=== PATIENT | male | born 1970 | race Caucasian/White ===

== ENCOUNTER 2017-08-18 15:19 | Emergency (ER) | payer MEDICAID, SELFPAY ==
[2017-08-18 15:20] VITALS: BP 125/67; PULSE 85; RESP 16; TEMP 36.9; O2SAT 99
--- NOTE | 2017-08-18 15:44 | ED.DCSUM_ITS ---
- ER Visit Summary Date of Service: 08/18/17 Chief Complaint: Back pain History of Present Illness: The patient is a 47 M with no primary care physician. He reports that yesterday while helping a friend move a refrigerator he was pulling and lifting when he slipped and twisted awkwardly. He has had left-sided back pain since that time. He did not fall. He describes the pain as sharp. Is 10 out of 10 with movement or standing up straight. Is 8 out of 10 at rest. Is taken ibuprofen without relief. No radiation to his legs. No numbness or weakness in his legs. No problems with his bowels or his bladder. No groin numbness. Physical Examination: Vitals: Stable. Afebrile. General: A&O x 3. NAD. Cardiovascular exam: Regular rate and rhythm, no murmur, rub or gallop. Respiratory exam: Clear to auscultation bilaterally. No wheezes or stridor. Abdominal exam: Soft, nontender, nondistended, normal bowel sounds. No peritoneal signs. Back: Moderate tenderness to palpation over the paraspinous musculature in the lumbar region. No vertebral tenderness. Negative straight leg bilaterally. 5/5 DF, PF, EHL bilaterally. Normal sensation to light touch throughout. Extremity: No clubbing, cyanosis, or edema. Emergency Department Course and Treatment: An [facility] report was obtained which shows only had one prescription for opiates in the past year. He is treated with [place] here. Treatment Plan: He will be discharged on [place], naproxen, and Flexeril. Instructed to follow-up the [facility] in 1 week if not improving. Return to the emergency department for any worsening symptoms. Disposition: To home in improved and stable condition. Impression: 1. Lumbar strain. This note was generated with [employer] dictation software. It may contain incorrect words, spelling, and punctuation that were not noted in review of the chart prior to signing ED Disposition - Plan for ED Patient: Chief Complaint: Back Instructions: ED Sprain Strain Lumbar Prescriptions: Hydrocodone Bitart/Apap 5-325 [Memphis 5/325] 1 - 2 tablet PO Q4H PRN PRN #20 tablet PRN Reason: Pain Naproxen [Naprosyn] 500 mg PO BID #20 tablet Cyclobenzaprine [Flexeril] 10 mg PO TID PRN #20 tablet PRN Reason: Muscle Spasm Referrals: [facility] [NON-STAFF] - 1 Week if not improving
[2017-08-18] MEDS: HYDROcodone Bitartrate/Apap 5/325 Tablet PO (16:07)
== END 2017-08-18 16:08 | disposition home or self-care (01) ==
LOC: ED 15:54
PROVIDERS: Emergency Provider Emergency Medicine
DX: S39.012A Strain of muscle, fascia and tendon of lower back, initial encounter (principal); X50.0XXA Overexertion from strenuous movement or load, initial encounter; Y93.E6 Activity, residential relocation; Y92.9 Unspecified place or not applicable; Y99.9 Unspecified external cause status; F17.210 Nicotine dependence, cigarettes, uncomplicated
CPT/HCPCS: 99283

== ENCOUNTER 2019-09-27 01:50 | Emergency (ER) | payer MEDICAID, SELFPAY ==
[2019-09-27 01:52] VITALS: BP 147/84; PULSE 100; RESP 15; TEMP 38.1; O2SAT 95; BMI 22.2
[2019-09-27 01:56] VITALS: BP 147/84; PULSE 100; RESP 18; TEMP 38.1; O2SAT 95
--- NOTE | 2019-09-27 02:04 | RAD_ITS ---
STUDY: X-RAY CHEST REASON FOR EXAM: Male, 49 years old. pt with cough congestion and fever. pain in chest when coughing. sorethroat. X 2-3 days TECHNIQUE: PA and lateral views of the chest. COMPARISON: 06/21/2013. FINDINGS: The lungs are clear and slightly underexpanded. There is no demonstrated pleural abnormality. Normal size heart. Normal mediastinum and brissa. Normal visualized pulmonary arteries. Normal visualized aortic arch and descending thoracic aorta. Normal visualized thoracic spine. Normal visualized ribs, clavicles, and shoulders. There is no demonstrated abnormality of the visualized soft tissue structures of the upper abdomen. RAD/Chest PA and Lateral IMPRESSION: No acute cardiopulmonary disease. Electronically Signed: Tala Hicks MD at 3:27 EDT , Service support ,
--- NOTE | 2019-09-27 02:08 | ED.DCSUM_ITS ---
- ER Visit Summary Date of Service: 09/27/19 Chief Complaint: Cough and fever History of Present Illness: The patient is a 49 M who presents with cough and fever that is been getting worse over the past 3 days. Patient states his fever was up to 102.7 at home. Patient states he has some burning in his chest. Patient states he is coughing up some dark thick sputum. Patient states nothing makes his cough or breathing any better or worse. Patient denies any sore throat or rhinorrhea. Patient admits to some generalized weakness. Patient denies any nausea or vomiting. Patient denies any neck or back pain. Physical Examination: Vital signs are stable. Patient is afebrile here with a temperature of 100.5. Patient is in no acute distress. Oral mucosa is pink and moist. Neck is supple. Trachea is midline. There is no JVD. Heart was regular rate and rhythm. Lungs showed diffuse wheezing and diminished sounds. There is good respiratory effort. There are no retractions noted. Abdomen is soft. Bowel sounds are normal. There is no tenderness. Cranial nerves II t hrough XII are intact. There are no focal motor or sensory deficits noted. Test Results: CBC and comprehensive metabolic profile were within normal limits. PA and lateral chest x-ray was obtained. There are no acute infiltrates. There is no acute process noted. This was interpreted by the radiologist and reviewed by myself. Emergency Department Course and Treatment: Patient was given a DuoNeb aerosol here. He was given a dose of Tylenol. Patient was feeling better on reevaluation. Patient was given a prescription for albuterol inhaler. Patient was instructed to continue Tylenol as needed for any aches and fevers. Patient was instructed to drink plenty of fluids. Patient was instructed to follow-up with his primary care physician in 5 to 7 days. Patient understood and was agreeable with the plan. All questions were answered. Disposition: Discharge home Impression: Viral bronchitis This note was generated with [employer] dictation software. It may contain incorrect words, spelling, and punctuation that were not noted in review of the chart prior to signing ED Disposition - Plan for ED Patient: Disposition: Home or Assisted Living Diagnosis: Viral bronchitis Instructions: BRONCHITIS with Wheezing (Adult) Prescriptions: Albuterol Inhaler [Ventolin Hfa] 2 puff INHALATION Q4H PRN PRN #1 inhaler PRN Reason: Wheezing Prescription Printed Referrals: Care Physician,No Primary [Primary Care Provider] - Williams Askew MD [STAFF PHYSICIAN] - 5-7 Days
[2019-09-27] MEDS: Acetaminophen 500 MG Tablet 1000 MG PO (02:12)
[2019-09-27 02:15] VITALS: PULSE 115; RESP 20
[2019-09-27] MEDS: Ipratropium/Albuterol Sulfate 3 ML AMPUL.NEB INHALATION (02:15)
[2019-09-27 02:26] LABS: Absolute Lymphocyte Count 0.29 X10^3/uL (0.83-4.51); Absolute Neutrophil Count 5.3 X10^3/uL (2.0-7.7); Basophil# 0.02 X10^3/uL; Basophil% 0.3 % (0-1); Hematocrit 41.4 % (40-54); Hemoglobin 14.2 g/dL (13.0-16.5); Lymphocyte # 0.29 X10^3/ul (4.0); Lymphocyte % 4.4 % (19-41); Mean Corp Hgb Conc 34.3 g/dL (32-36); Mean Corpuscular Hgb 31.2 pg (27.0-32.0); Mean Platelet Vol. 10.6 fl (6.2-12.0); Monocyte# 0.92 X10^3/uL; Monocyte% 14.1 % (0-10); NRBC Flagged by Analyzer 0 % (0-5); Neutrophil # 5.28 X10^3/uL (2.7-7.7); Neutrophil % 80.7 % (47-70); POSITIVE DIFFERENTIAL YES; POSITIVE MORPHOLOGY YES; Platelet Count 125 K/mm3 (150-450); RBC Distribution Width SD 43.5 fl (35.1-43.9); Red Blood Count 4.55 M/mm3 (4.6-6.2); White Blood Count 6.5 K/mm3 (4.4-11.0)
[2019-09-27 02:36] LABS: Differential Indicated SCAN CRITERIA MET
[2019-09-27 02:41] LABS: Differential Comment SCANNED; Platelet Estimate SLT DEC (ADEQ); Red Cell Morphology NORM C+C NORMAL (NORM C&C)
[2019-09-27 02:49] LABS: AST(SGOT) 25 U/L (15-37); Alanine Aminotransfer ALT/SGPT 22 U/L (16-61); Albumin, Serum 3.5 g/dL (3.2-5.0); Alkaline Phosphatase 87 U/L (45-117); Anion Gap 7 (5-15); BUN 13 mg/dL (7-18); BUN/Creat Ratio 10.2 RATIO (10-20); Calcium,Total 8.7 mg/dL (8.5-10.1); Chloride 112 mmol/L (98-107); Creatinine, Serum 1.27 mg/dL (0.70-1.30); EST Glomerular Filtration Rate 65 mL/min (>60); Est Glom Filt Rate - Afr Amer 78 mL/min (>60); Estimated Creatinine Clearance 69.57 ml/min; Globulin 3.5 g/dL (2.2-4.2); Glucose 100 mg/dL (74-106); Potassium 3.4 mmol/L (3.5-5.1); Sodium Level 141 mmol/L (136-145)
[2019-09-27 03:01] VITALS: BP 132/68; PULSE 102; RESP 19; TEMP 37.6; O2SAT 95
[2019-09-27 03:51] VITALS: BP 126/71; PULSE 90; RESP 18; O2SAT 95
== END 2019-09-27 03:52 | disposition home or self-care (01) ==
PROVIDERS: Emergency Provider Emergency Medicine
DX: J20.8 Acute bronchitis due to other specified organisms (principal)
CPT/HCPCS: 71046; 80053; 85025; 94640; 99285; A4216

== ENCOUNTER → 2023-04-04 | Outpatient (CLI) | payer MEDICAID, SELFPAY ==
[2023-04-04 12:41] LABS: Anion Gap 5 (5-15); BUN 11 mg/dL (7-18); BUN/Creat Ratio 10.9 RATIO (10-20); Calcium,Total 8.9 mg/dL (8.5-10.1); Chloride 114 mmol/L (98-107); Cholesterol 163 mg/dL (200); Creatinine, Serum 1.01 mg/dL (0.70-1.30); EST Glomerular Filtration Rate 83 mL/min (>60); Est Glom Filt Rate - Afr Amer 100 mL/min (>60); Glucose 105 mg/dL (74-106); High Density Lipoprotein 50 mg/dL; Potassium 3.4 mmol/L (3.5-5.1); Sodium Level 143 mmol/L (136-145); Triglycerides 89 mg/dL; Very Low Density Lipoprotein 18 mg/dL (5-40)
[2023-04-04 13:15] LABS: Hemoglobin A1c 5.1 % (3.8-5.6)
== END | disposition home or self-care (01) ==
LOC: MTLAB 09:43
PROVIDERS: PCP Family Medicine; Referring Provider Family Medicine; Visit Provider Family Medicine
DX: Z00.00 Encounter for general adult medical examination without abnormal findings (principal)
CPT/HCPCS: 36415; 80048; 80061; 83036

== ENCOUNTER 2024-05-17 02:42 | Emergency (ER) | payer SELFPAY ==
[2024-05-17 02:42] VITALS: BP 150/99; PULSE 78; RESP 19; TEMP 36.6; O2SAT 98; BMI 23.4
--- NOTE | 2024-05-17 02:47 | EX.ED.DYSGE1 ---
HPI History of Present Illness Chief Complaint: Flank Pain Detail of Chief Complaint: Abrupt left flank pain Informant: patient Onset/Context/Timing Onset: Today and Hours Context: Sudden Onset Timing: Continuous Quality: Pain Location: Left flank Current Severity: Severe Maximum Severity: Severe Worsened by: Nothing Relieved by: Nothing Associated Symptoms Associated Symptoms: Slight cough and pain with breathing Narrative Narrative: Patient is a 54-year-old male. He is a daily smoker. He denies alcohol use. He was awakened from sleep with left flank pain. He denies history of renal ureterolithiasis. He denies dysuria, frequency, urgency or hematuria. He denies pain radiating anteriorly or to the groin. He denies fever, chills night sweats. He denies chest pain. He denies shortness of breath. He does endorse pain with breathing. He has no history of VTE nor does he have any risk factors. He denies leg pain, swelling discoloration. He has never had pain like this before. He has no allergy to pain medicine. There is no history of direct or indirect trauma. Prior similar symptoms: No Recent Illness/Hospitalization: No PFSH PFSH Home Medications ?Medication ?Instructions ?Recorded ?Last Taken ?Type albuterol sulfate 90 mcg/actuation 2 puff inhalation Q4H PRN PRN 09/27/19 Unknown Rx aerosol inhaler Wheezing ##1 Allergy/AdvReac Type Severity Reaction Status Date / Time Penicillins Allergy Rash Verified 05/17/24 02:43 Surgical History no surgical history Social History (Updated 05/17/24 @ 02:[address] Waylon Bernal MD) household members: significant other Smoking Status: Current every day smoker tobacco type: cigarettes ROS ROS ED Constitutional Constitutional ED: Denies chills, fever(s), subjective or sweats Cardiovascular Cardiovascular: Denies chest pain or palpitations Respiratory/Chest Respiratory/Chest: Reports other Details: Pain with breathing. ; Denies cough, dyspnea or dyspnea on exertion Gastrointestinal Gastrointestinal: Denies abdominal pain, constipation, diarrhea, melena, nausea or vomiting Genitourinary Genitourinary ED: Denies dysuria, hematuria or urinary frequency Musculoskeletal Musculoskeletal: Denies arthralgias, back pain or myalgias Integumentary Denies rash Neurologic Neurologic: Denies weakness Hematologic/Lymphatic Hematologic/Lymphatic: Reports systems reviewed and no addt'l complaints, except as documented EXAM Physical Exam Const Vital Signs: 05/17/24 02:42 05/17/24 04:42 05/17/24 05:09 Temperature 97.8 F 98.1 F Temperature Source Oral Oral Pulse Rate 78 46 L 46 L Respiratory Rate 19 H 16 16 Blood Pressure 150/99 H 144/78 H 144/68 H Blood Pressure Mean 116 100 93 Pulse Ox 98 97 98 Oxygen Delivery Method Room Air Room Air Positive well nourished and well developed Constitutional Narrative: Patient is slightly pale and diaphoretic. He is in obvious discomfort. He appears not to be able to find a position of comfort. General Appearance ED: well developed and pallor HEENT HEENT Narrative: Head is atraumatic normocephalic. Ears normal. Nares patent. Eyes PERRL and EOMs intact bilaterally General Eye ED: Negative for pale conjunctiva or scleral icterus Neck no lymphadenopathy, supple and no JVD Resp normal respiratory effort and clear to auscultation bilaterally Cardio regular rate, regular rhythm, S1 normal heart sound, S2 normal heart sound and no murmurs GI normal to inspection, nondistended, normoactive bowel sounds, non-tender and non-distended; Negative for hepatosplenomegaly or no masses Narrative: There is no inguinal lymphadenopathy or mass. Back/Spine General Back: CVA tenderness right Extremity normal to inspection Extremity Narrative: There is no asymmetry, swelling, discoloration, leg vein distention, palpable cords or tenderness along the distribution of the deep venous system. Neuro oriented x3 and CN's II-XII intact bilaterally Sensorium / Orientation: alert Psych mental status grossly normal Skin no rashes or lesions noted, no wounds and skin turgor normal General Skin Exam: pallor; Negative for elasticity normal or jaundice MDM MDM MDM Narrative Medical decision making narrative: With abrupt onset of left flank pain differential diagnosis would include obstructing ureteral stone, abdominal aortic aneurysm is unlikely. Also need to consider pulmonary embolus since there is a pleuritic component. History and physical not consistent with musculoskeletal pain since changing position does not cause him discomfort nor does palpation. Unusual presentation for pyelonephritis will obtain UA to assess for blood and infection. CBC to assess white count differential. BMP to assess for renal function. If urine is negative there is a slight chance that this may be a completely obstructing stone i.e. 1 to 2%. May proceed to CT of the abdomen and pelvis without contrast which would also evaluate the aorta. Doubt dissection since bilateral radial and DP pulse are 2+ and symmetric. Patient was medicated with IV Toradol. Most likely this represents an obstructing ureteral stone. Lab Data Attestation: I reviewed the patient's lab results. Lab results narrative: Urine reveals specific gravity 1.030, protein, ketones, occult blood, nitrites and leukoesterase. Micro reveals 50-100 RBCs with 0-5 WBCs and 4+ bacteria. Urine culture was sent. Patient was treated with Rocephin. He reports rash with penicillin. CBC is unremarkable. There is no leukocytosis or shift with regards to neutrophils. Labs: Laboratory Results - last 24 hr 05/17/24 05/17/24 02:46 03:34 WBC 8.3 RBC 4.59 L Hgb 14.4 Hct 41.6 MCV 90.6 MCH 31.4 MCHC 34.6 RDW Std Deviation 42.9 RDW Coeff of Evelyn 13.0 Plt Count 183 MPV 11.1 Immature Gran % (Auto) 0.200 Neut % (Auto) 46.9 L Lymph % (Auto) 32.1 Morris % (Auto) 19.0 H Eos % (Auto) 1.0 Baso % (Auto) 0.8 Absolute Neuts (auto) 3.9 Absolute Lymphs (auto) 2.67 Nucleated RBC % 0 Differential Comment SCANNED Sodium 141 Potassium 3.3 L Chloride 113 H Carbon Dioxide 21.0 Anion Gap 7 BUN 11 Creatinine 1.11 Estim Creat Clear Calc 77.85 Est GFR (MDRD) Af Amer 89 Est GFR (MDRD) Non-Af 74 BUN/Creatinine Ratio 9.9 L Glucose 120 H Calcium 8.9 Urine Color Radha Urine Clarity Sl. Cloudy Urine pH 5.0 Ur Specific [place] 1.030 Urine Protein 30 H Urine Glucose (UA) Normal Urine Ketones 50 H Urine Occult Blood 250 H Urine Nitrite Positive H Urine Bilirubin 1 H Urine Urobilinogen 4 H Ur Leukocyte Esterase 25 H Urine RBC 50-100 SEEN Urine WBC 0-5 SEEN Ur Squamous Epith Cells 0 SEEN Urine Bacteria 4+ Urine Mucus 3+ Patient's urine had a dark brown appearance. Patient is still complaining of pain. 4 mg of morphine was ordered. He states initially the ketorolac helped. In light of the color of the urine abrupt onset of flank pain will obtain CT of the abdomen pelvis without contrast to evaluate for obstructing ureteral stone. Radiography Diagnostic Testing: Clinical Impression(s) from Imaging Studies Abdomen/Pelvis CT 05/17/24 03:38 IMPRESSION: Distal left ureteral calculus with mild left hydroureteronephrosis. Left nephrolithiasis. Electronically Signed: Nae Sullivan MD at 4:45 EDT , CT of the abdomen pelvis without contrast reveals minimal atherosclerotic changes of the aorta and left proximal iliac artery. There is a stone noted in the pelvis of the left kidney. There is evidence of hydroureter on the left and there appears to be a stone at the UPJ on the left. If radiology is in agreement since he has an infection and there is no urology coverage this week will need to transfer patient. Treatment and Re-Evaluation :: Radiology report was read. There is a left renal calculus as well as an obstructing left ureteral calculus. Will attempt hospitals in [place] with urology for transfer since there is no urology on-call at [facility]. The call center [facility] was contacted. We were informed they are boarding patients and there is a 3-day wait. In light of this [facility] Awaiting callback from urologist. Spoke with the hospitalist Dr. Milian at [facility] who accepted patient. Comments:: When patient is asleep he is bradycardic. He has a sinus bradycardia rate of 45-50. QRS complex is narrow. Discharge Plan Triage Chief Complaint: Flank Pain ED Provider: Waylon Bernal Dx/Rx/DC Orders Clinical Impression: Hydronephrosis with urinary obstruction due to ureteral calculus, Left renal stone, Complicated urinary tract infection, Elevated blood-pressure reading without diagnosis of hypertension, Sinus bradycardia seen on tank insulator rubber Prescriptions: No Action albuterol sulfate 1 INHALER inhaler 2 puff inhalation Q4H PRN PRN (Reason: Wheezing) Qty: 1 0RF Primary Care Provider: aKleb Lora Referrals: Kaleb Lora MD [Primary Care Provider] - Print Language: Monegasque Disposition Disposition: Acute Care Hospital Discharge Location: [facility]
[2024-05-17] MEDS: Ketorolac 15 MG/ML Vial IV (02:49)
[2024-05-17 02:53] LABS: Absolute Lymphocyte Count 2.67 X10^3/uL (0.83-4.51); Absolute Neutrophil Count 3.9 X10^3/uL (2.0-7.7); Basophil# 0.07 X10^3/uL; Basophil% 0.8 % (0-1); Eosinophil# 0.08 X10^3/uL; Hematocrit 41.6 % (40-54); Hemoglobin 14.4 g/dL (13.0-16.5); Lymphocyte # 2.67 X10^3/ul (0.83-4.51); Lymphocyte % 32.1 % (19-41); Mean Corp Hgb Conc 34.6 g/dL (32-36); Mean Corpuscular Hgb 31.4 pg (27.0-32.0); Mean Corpuscular Volume 90.6 fL (80-94); Mean Platelet Vol. 11.1 fl (6.2-12.0); Monocyte# 1.58 X10^3/uL; NRBC Flagged by Analyzer 0 % (0-5); Neutrophil # 3.91 X10^3/uL (2.7-7.7); Neutrophil % 46.9 % (47-70); POSITIVE DIFFERENTIAL YES; Platelet Count 183 K/mm3 (150-450); RBC Distribution Width SD 42.9 fl (35.1-43.9); Red Blood Count 4.59 M/mm3 (4.6-6.2); White Blood Count 8.3 K/mm3 (4.4-11.0)
[2024-05-17 02:55] LABS: Differential Indicated SCAN CRITERIA MET
--- OUTSIDE RECORDS SUMMARY | 2024-05-17 03:02 | XMS RPT_ITS | CCD ---
Author Organization [facility] Care Team Providers Care Silo Painter Name Role Phone GALE LYNCH Unavailable Unavailable PHYSICIAN, NONE Unavailable Unavailable [facility] Unavailable Unavaila ble [facility] Unavailable Unavaila ble [place] Unavailable Unavaila ble [place] Unavailable Unavailable PHYSICIAN, NONE Unavailable Unavailable LISET ARREDONDO Unavailable Unavailable Lianet Renteria MD Primary Care Provider Allergies Allergy Classification Reported Allergen(s) Allergy Type Date of Onset Reaction(s) Facility (1 source) Penicillins Propensity to adverse reactions 04-15-2005 [facility] Work Phone: (1 source) hay fever [Other] Propensity to adverse reactions 04-15-2005 [facility] Work Phone: Medications Completed/Discontinued Medications Medication Drug Class(es) Dates Sig (Normalized) Sig (Original) brompheniramine maleate 0.4 mg/ml / dextromethorphan hydrobromide 2 mg/ml / pseudoephedrine hydrochloride 6 mg/ml oral solution (1 source) alpha-Adrenergic Agonist, Uncompetitive H-nscvqh-A-aspartat e Receptor Antagonist, Sigma-1 Agonist Start: 08-07-2017 take 5 mL by mouth four times daily as needed Brompheniramine -Pseudoeph-DM (BROMFED DM) 2-30-10 mg/5 mL syrup Indications: URI with cough and congestion Take 5 mL by mouth four times daily as needed. 120 mL 0 08/07/2017 Active Comment on above: Take 5 mL by mouth f our times daily as needed. Problems Active Problems Problem Classification Problem Date Documented Da te Episodic/Chronic Substance-related disorders (1 source) Tobacco user; Translations: [Nicotine dependence, unspecified, uncomplicated] Onset: 05-01-2016 05-01-2016 Chronic Unclassified (1 source) Unknown / UNK(Unknown) Onset: 01-25-2017 Past or Other Problems Problem Classification Problem Date Documented Da te Episodic/Chronic Unclassified (1 source) LT HIP PAIN, DOWN THE LEG//BACK PAIN W/SCIATICA Onset: 01-25-2017 Results Test Name Value Interpretation Reference Range Facil itnatalie Lujan 03-06-2023 [facility] Telephone (FAMPWS) -------- MANUEL HUTCHINSON ([id number]) 1970 M Date Time Provider Department 03/06/23 LIANET RENTERIA [facility] During your visit today, we recorded the following information about you: Kristine Philip 03/06/2023 9:05 AM Signed Patient was last seen by PCP in 2015. He is requesting permission to re-establish with provider's services. Confirmed phone number is active. Lianet Renteria MD 03/06/2023 10:05 AM Signed Looks like I only saw him once for acute visit. If it has been more than 5 years, I would not re-establish him at this time. Kristine Philip 03/06/2023 1:05 PM Signed Patient was notified and voiced understanding. Allergies As of Date: 03/06/2023 Noted Allergy Reaction hay fever [Other] 04/15/2005 PENICILLINS 04/15/2005 Date Reviewed: 08/07/2017 Reviewed by: Maureen Soto ([facility]) - Fully Assessed Reason for Visit: Appointment [[id number]] Prescriptions as of 03/06/2023 - Brompheniramine-Ps eudoeph-DM (BROMFED DM) 2-30-10 mg/5 mL syrup Take 5 mL by mouth four times daily as needed. Problem List As Of Date 03/06/2023 Noted Resolved Tobacco use disorder [F17.200] 05/01/2016 Encounter Status:Closed by KRISTINE PHILIP on 03/06/23 Normal [facility] Emergency Room Note on 05-19-2017 [place] [facility] Note Normal [facility] ([place] .Auto Diffon 05-12-2017 Basophils Auto #/vol (Bld) 0.10 10 3/mcL Normal 0.00-0.19 [facility] [place]) Comment on above: Performed By: #### C BC, ADIFF, ANEU, BMP, LIP, GFR ####[address] [place], [place] [address] Basophils/100 WBC Auto (Bld) 0.9 % Normal 0.0-2.5 [facility] ([place]) Comment on above: Performed By: #### C BC, ADIFF, ANEU, BMP, LIP, GFR ####[address] [place], [place] [address] Eosinophils 0.40 10 3/mcL Normal 0.00-0.40 [facility] ([place]) Comment on above: Performed By: #### C BC, ADIFF, ANEU, BMP, LIP, GFR ####[address] [place], [place] [address] Eosinophils/100 leukocytes 6.1 % Normal 0.0-7.0 [facility] ([place]) Comment on above: Performed By: #### C BC, ADIFF, ANEU, BMP, LIP, GFR ####[address] [place], [place] [address] Lymphocytes 2.50 10 3/mcL Normal 0.77-3.85 [facility] ([place]) Comment on above: Performed By: #### C BC, ADIFF, ANEU, BMP, LIP, GFR ####[address] [place], [place] [address] Lymphocytes/100 leukocytes 35.7 % Normal 10.0-50.0 [facility] ([place]) Comment on above: Performed By: #### C BC, ADIFF, ANEU, BMP, LIP, GFR ####[address] [place], [place] [address] Monocytes 0.70 10 3/mcL Normal 0.15-1.00 [facility] ([place]) Comment on above: Performed By: #### C BC, ADIFF, ANEU, BMP, LIP, GFR ####[address] [place], [place] [address] Monocytes/100 leukocytes 9.7 % Normal 1.7-13.0 [facility] ([place]) Comment on above: Performed By: #### C BC, ADIFF, ANEU, BMP, LIP, GFR ####[address] [place], [place] [address] Neutrophils/100 WBC Auto (Bld) 47.6 % Normal 37.0-80.0 [facility] ([place]) Comment on above: Performed By: #### C BC, ADIFF, ANEU, BMP, LIP, GFR ####[address] [place], [place] [address] .GFRon 05-12-2017 eGFR (non-black) 98 ml/min/1.73sqm Normal [facility] ([place]) Comment on above: Result Comment: GFR Population mean for , Non- Americans Ages 20-29 = 116 mL/min/1.73 sq.m. Ages 30-39 = 107 mL/min/1.73 sq.m. Ages 40-49 = 99 mL/min/1.73 sq.m. Ages 50-59 = 93 mL/min/1.73 sq.m. Ages 60-69 = 85 mL/min/1.73 sq.m. Ages 70+ = 75 mL/min/1.73 sq.m.Chronic Kidney Disease: Less than 60 mL/min/1.73 square metersEnd Stage Renal Disease: Less than 15 mL/min/1.73 square meters Performed By: #### C BC, ADIFF, ANEU, BMP, LIP, GFR ####[address] [place], [place] [address] eGFR (non-black) mL/min/{1.73_m2} Normal [facility] ([place]) Comment on above: Result Comment: GFR Population mean for , Non- Americans Ages 20-29 = 116 mL/min/1.73 sq.m. Ages 30-39 = 107 mL/min/1.73 sq.m. Ages 40-49 = 99 mL/min/1.73 sq.m. Ages 50-59 = 93 mL/min/1.73 sq.m. Ages 60-69 = 85 mL/min/1.73 sq.m. Ages 70+ = 75 mL/min/1.73 sq.m.Chronic Kidney Disease: Less than 60 mL/min/1.73 square metersEnd Stage Renal Disease: Less than 15 mL/min/1.73 square meters Performed By: #### C BC, ADIFF, ANEU, BMP, LIP, GFR ####[address] [place], [place] [address] .NEUABSon 05-12-2017 Neutrophils 3.30 10 3/mcL Normal 2.85-6.16 [facility] ([place]) Comment on above: Performed By: #### C BC, ADIFF, ANEU, BMP, LIP, GFR ####[address] [place], [place] [address] BMPon 05-12-2017 BUN/Creatinine Ratio 8 ratio Normal 7-27 [facility] ([place]) Comment on above: Performed By: #### C BC, ADIFF, ANEU, BMP, LIP, GFR ####[address] [place], [place] [address] Calcium 9.4 mg/dL Normal 8.4-10.2 [facility] ([place]) Comment on above: Performed By: #### C BC, ADIFF, ANEU, BMP, LIP, GFR ####[address] [place], [place] [address] Chloride 108 mmol/L High 98-107 [facility] ([place]) Comment on above: Performed By: #### C BC, ADIFF, ANEU, BMP, LIP, GFR ####[address] [place], [place] [address] CO2 28 mmol/L Normal 22-29 [facility] ([place]) Comment on above: Performed By: #### C BC, ADIFF, ANEU, BMP, LIP, GFR ####[address] [place], [place] [address] Creatinine 1.0 mg/dL Normal 0.6-1.2 [facility] ([place]) Comment on above: Performed By: #### C BC, ADIFF, ANEU, BMP, LIP, GFR ####[address] [place], [place] [address] Electrolyte Balance 5.0 mEq/L Normal [facility] ([place]) Comment on above: Performed By: #### C BC, ADIFF, ANEU, BMP, LIP, GFR ####[address] [place], [place] [address] Glucose mass conc 104 mg/dL Normal 70-105 [facility] ([place]) Comment on above: Performed By: #### C BC, ADIFF, ANEU, BMP, LIP, GFR ####[address] [place], [place] [address] Potassium molar conc 3.5 mmol/L Normal 3.5-5.1 [facility] ([place]) Comment on above: Performed By: #### C BC, ADIFF, ANEU, BMP, LIP, GFR ####[address] [place], [place] [address] Sodium 141 mmol/L Normal 136-146 [facility] ([place]) Comment on above: Performed By: #### C BC, ADIFF, ANEU, BMP, LIP, GFR ####[address] [place], [place] [address] Urea nitrogen 7.8 mg/dL Normal 7.0-18.0 [facility] ([place]) Comment on above: Performed By: #### C BC, ADIFF, ANEU, BMP, LIP, GFR ####[address] [place], [place] [address] CBCon 05-12-2017 Erythrocyte distribution width Auto Ratio (RBC) 13.0 % Normal 11.5-14.5 [facility] ([place]) Comment on above: Performed By: #### C BC, ADIFF, ANEU, BMP, LIP, GFR ####[address] [place], [place] [address] Erythrocytes (RBC) 4.74 10 6/mcL Normal 4.04-6.13 [facility] ([place]) Comment on above: Performed By: #### C BC, ADIFF, ANEU, BMP, LIP, GFR ####[address] [place], [place] [address] Hematocrit (HCT) 43.4 % Normal 42.0-52.0 [facility] ([place]) Comment on above: Performed By: #### C BC, ADIFF, ANEU, BMP, LIP, GFR ####[address] [place], [place] [address] Hemoglobin mass conc (Bld) 14.8 G/dL Normal 14.0-18.0 [facility] ([place]) Comment on above: Performed By: #### C BC, ADIFF, ANEU, BMP, LIP, GFR ####[address] [place] [address] MCH 31.2 pg Normal 27.0-31.2 [facility] ([place]) Comment on above: Performed By: #### C BC, ADIFF, ANEU, BMP, LIP, GFR ####[address] [place], [place] [address] MCHC mass conc (RBC) 34.1 G/dL Normal 31.8-35.4 [facility] ([place]) Comment on above: Performed By: #### C BC, ADIFF, ANEU, BMP, LIP, GFR ####[address] [place], [place] [address] MCV 91.4 fL Normal 80.0-94.0 [facility] ([place]) Comment on above: Performed By: #### C BC, ADIFF, ANEU, BMP, LIP, GFR ####[address] [place], [place] [address] Platelet mean volume (PMV) 8.6 fL Normal 7.4-10.4 [facility] ([place]) Comment on above: Performed By: #### C BC, ADIFF, ANEU, BMP, LIP, GFR ####[address] [place], [place] [address] Platelets 164 10 3/mcL Normal 130-400 [facility] ([place]) Comment on above: Performed By: #### C BC, ADIFF, ANEU, BMP, LIP, GFR ####[address] [place], [place] [address] WBC (Leukocytes) 6.90 10 3/mcL Normal 4.60-10.80 [facility] ([place]) Comment on above: Performed By: #### C BC, ADIFF, ANEU, BMP, LIP, GFR ####[address] [place], [place] [address] LIPon 05-12-2017 Lipase Level 30 IU/L Normal 8-78 [facility]) Comment on above: Performed By: #### C BC, ADIFF, ANEU, BMP, LIP, GFR ####[address] [place], [place] [address] Patient Summary Documentson 05-12-2017 Patient Summary Documents Normal [facility] [place] [facility] Note on 01-27-2017 [facility] Note Normal [facility] Patient Summary Documentson 01-25-2017 Patient Summary Documents Normal [facility] Encounters Encounter Date Encounter Type Care Provider Facility Start: 03-06-2023 Telephone encounter Gregory Renteria MD Work Phone: [facility] Comment on above: Appointment Start: 05-12-2017 End: 05-12-2017 Emergency department patient visit GALE LYNCH Facility:B Start: 04-23-2017 End: 04-23-2017 [facility] Start: 01-25-2017 End: 01-25-2017 Emergency department patient visit [facility] Facility:[facility] Plan of Treatment Date Care Activity Detail Author Start: 03-21-2023 Influenza vaccination INFLUENZA (#1) [facility] Start: 07-21-2022 DEPRESSION ASSESSMENT DEPRESSION ASS ESSMENT [facility] Start: 2022 Influenza vaccination LUNG CANCER SC REENING [facility] Start: 2022 SHINGRIX VACCINE (1 of 2) SHINGRIX V ACCINE (1 of 2) [facility] Start: 06-28-2021 LIPID SCREEN LIPID SCREEN [facility] Start: 06-28-2019 DIABETES SCREEN DIABETES SCREEN [facility] Start: 2017 COLOGUARD (FIT-DNA) COLOGUARD (FIT-D NA) [facility] Start: 2017 Colonoscopy COLONOSCOPY [facility] Start: 2017 COLORECTAL CANCER SCREENING COLORECTAL CANCER SCREENING [facility] Start: [address] [facility] Start: 2017 FECAL OCCULT BLOOD FECAL OCCULT BLOO D [facility] Start: 2017 SIGMOIDOSCOPY SIGMOIDOSCOPY [facility] Start: 1991 Urine microalbumin profile DTAP,TDAP ,TD (1 - Tdap) [facility] Start: 1990 HEPATITIS C SCREENING HEPATITIS C SC REENING [facility] Start: 1990 HIV SCREENING HIV SCREENING [facility] Start: 1972 COVID-19 VACCINE (#1) COVID-19 VACCI NE (#1) [facility] Start: 1972 HEPATITIS B (1 of 3 - 3-dose series) HEPATITIS B (1 of 3 - 3-dose series) [facility] Payers Date Payer Category Payer Medicaid [facility] MEDIC AID [facility] MEDICAID [id number] 2022-Present [phone] [address] [place] [address] Medicaid [id number] 2015 Medicaid [id number] Social History Date Type Detail Facility Start: 08-07-2017 Tobacco smoking stat us WIIS Smokes tobacco daily [facility] Work Phone: History of tobacco use Cigarette Smoker C [facility] Work Phone: Start: 08-07-2017 End: 06-27-2020 Cigarettes smoked current (pack per day) - Reported 1 [facility] Start: 08-07-2017 Tobacco use and exposure Smokeless tobacco non-user [facility] Work Phone: Start: 03-06-2022 Alcohol intake Current non-dr concession attendant of alcohol (finding) [facility] Start: 06-27-2020 End: 03-06-2022 Tobacco use panel [facility] National Score (1-10 0), lower number is lower risk Not on file [facility] Start: 1970 Sex Assigned At Not on file C [facility] Note 03-06-2023 Telephone Encounter - Kristine Philip - 03/06/2023 1:05 PM EDTTelephone Encounter - Lianet Renteria MD - 03/06/2023 10:04 AM EDTTelephone Encounter - Kristine Philip - 03/06/2023 9:04 AM EDT Note Date & Type Note Facility 03-06-2023 Miscellaneous Notes Formattin g of this note might be different from the original. Patient was notified and voiced understanding. Looks like I only saw him once for acute visit. If it has been more than 5 years, I would not re-establish him at this time. Patient was last seen by PCP in 2015. He is requesting permission to re-establish with provider's services. Confirmed phone number is active. documented in this encounter [facility] Summary Purpose Family History No Family History Records FoundNo Family History Records FoundNo Family History Records FoundNo Family History Records Found Advance Directives No Advanced Directives Records FoundNo Advanced Directives Records FoundNo Advanced Directives Records FoundNo Advanced Directives Records Found Additional Source Comments (unrecognized sect ion and content) No Status Records FoundNo Status Records FoundNo Status Records FoundNo Status Records Found INFORMATION SOURCE (unrecogn ized section and content) DATE CREATED AUTHOR 01/13/2018 [employer] [facility] [employer] ([place]) DATE CREATED AUTHOR AUTHOR'S ORGANIZ ATION 01/14/2018 [facility] DATE CREATED AUTHOR AUTHOR'S ORGANIZ ATION 01/14/2018 [employer] [facility] DATE CREATED AUTHOR AUTHOR'S ORGANIZ ATION 03/07/2023 [facility] Source Comments (unrecognize d section and content) In the event this informatio n is protected by the Federal Confidentiality of Alcohol and Drug Abuse Patient Records regulations: The Federal rules restrict any use of the information to criminally investigate or prosecute any alcohol or drug abuse patient.[facility] Reason for Visit (unrecogniz ed section and content) Reason Comments Appointment Care Teams (unrecognized sec tion and content) Silo Painter Relationship Specialty Start Date End Date Lianet Renteria MD [address] [place] [address] PCP - General Family Medicine 05/13/16 FOR RECORDS PERTAINING TO PATIENTS WHO ARE OR HAVE BEEN ENROLLED IN A CHEMICAL DEPENDENCY/SUBSTANCEABUSE PROGRAM, SOME INFORMATION MAY BE OMITTED. This clinical summary was aggregated from multiple sources. Caution should be exercised in using it in the provision of clinical care. This summary normalizes information from multiple sources, and as a consequence, information in this document may materially change the coding, format and clinical context of patient data. In addition, data may be omitted in some cases. CLINICAL DECISIONS SHOULD BE BASED ON THE PRIMARY CLINICAL RECORDS. [facility]. provides no warranty or guarantee of the accuracy or completeness of information in this document.
[2024-05-17 03:23] LABS: Differential Comment SCANNED
[2024-05-17 03:37] LABS: Squamous Epithelial Cells - UA 0 SEEN /hpf (0-5)
--- NOTE | 2024-05-17 03:38 | CT_ITS ---
EXAM: CT Abdomen And Pelvis W/O Contrast Injection HISTORY: Left flank pain, hematuria TECHNIQUE: Routine protocol CT abdomen and pelvis. IV Contrast: None.. Oral contrast: None. RADIATION DOSAGE (If Supplied By Facility): CTDIvol = ( 6.13 ) mGy, DLP = ( 301.85 ) mGycm Individualized dose optimization techniques were used for this CT. COMPARISON: None. LIMITATIONS: None. FINDINGS: LOWER CHEST: Included lung bases are clear. LIVER: Grossly unremarkable. GALLBLADDER AND BILIARY TREE: Grossly unremarkable. PANCREAS: Grossly unremarkable. SPLEEN: Grossly unremarkable. ADRENAL GLANDS: Grossly unremarkable. KIDNEYS AND URETERS: There is a tiny 1 to 2 mm calculus in the distal left ureter immediately proximal to the ureterovesical junction. Left ureter is slightly dilated with mild left hydronephrosis and perinephric stranding. A larger calculus in the left kidney. No hydronephrosis on the right. PERITONEUM: No free air. No free fluid. BOWEL: No bowel obstruction. APPENDIX: Visualized and unremarkable. No evidence of acute appendicitis. VESSELS: Abdominal aorta is normal caliber. REPRODUCTIVE ORGANS: Grossly unremarkable URINARY BLADDER: Not distended. ABDOMINAL WALL: Unremarkable. BONES: No acute abnormalities. CT/Abdomen/Pelvis without Cont IMPRESSION: Distal left ureteral calculus with mild left hydroureteronephrosis. Left nephrolithiasis. Electronically Signed: Nae Sullivan MD at 4:45 EDT ,
[2024-05-17 03:40] LABS: Anion Gap 7 (5-15); BUN 11 mg/dL (7-18); BUN/Creat Ratio 9.9 RATIO (10-20); Calcium,Total 8.9 mg/dL (8.5-10.1); Chloride 113 mmol/L (98-107); Creatinine, Serum 1.11 mg/dL (0.70-1.30); EST Glomerular Filtration Rate 74 mL/min (>60); Est Glom Filt Rate - Afr Amer 89 mL/min (>60); Estimated Creatinine Clearance 77.85 ml/min; Glucose 120 mg/dL (74-106); Potassium 3.3 mmol/L (3.5-5.1); Sodium Level 141 mmol/L (136-145)
[2024-05-17 03:41] LABS: Color, Urine Amber (Yellow); Glucose, Dipstick Normal (Normal); Ketone-Dipstick 50 mg/dl (Negative); Leukocyte Esterase-Dipstick 25 /ul (Negative); Nitrite-Dipstick Positive (Negative); Occult Blood-Urine 250 /ul (Negative); Protein-Dipstick 30 mg/dl (Negative); Urine Clarity Sl. Cloudy (Clear); Urine Urobilinogen 4 mg/dl (Normal)
[2024-05-17] MEDS: Morphine 4 MG/ML Syringe IV (03:42)
[2024-05-17 03:58] LABS: Bacteria 4+ /hpf (None Seen); Mucous, Urine 3+ /hpf (<or=2+); Red Blood Cells-Urine 50-100 SEEN /hpf (0-5); Urine Bilirubin Dipstick 1 mg/dL (Negative); White Blood Cells 0-5 SEEN /hpf (0-5)
[2024-05-17] MEDS: Ceftriaxone 2 GM in 0.9% Normal Saline (50mL MB+) 50 ML IV (04:15)
[2024-05-17 04:42] VITALS: BP 144/78; PULSE 46; RESP 16; O2SAT 97
[2024-05-17 05:09] VITALS: BP 144/68; PULSE 46; RESP 16; TEMP 36.7; O2SAT 98
--- NOTE | 2024-05-17 05:09 | ED.RN ---
[facility] DECLINED TRANSFER DUE TO PTS WAITING FOR BEDS IN MULTIPLE HOSPITALS. CALLED [facility], FAXED FACE SHEET, AWAITING CALL FOR CONSULT.
[2024-05-17 06:09] VITALS: BP 149/80; PULSE 50; RESP 19; TEMP 36.8; O2SAT 93
--- NOTE | 2024-05-17 06:56 | ED.RN ---
[facility]- [phone] ETA 1980
[2024-05-17] MEDS: HYDROmorphone 0.5 MG/0.5 ML SYRINGE IV (07:27)
[2024-05-17 07:30] VITALS: BP 147/87; PULSE 54; RESP 16; TEMP 36.4; O2SAT 99
== END 2024-05-17 07:34 | disposition short-term general hospital (02) ==
PROVIDERS: Emergency Provider Emergency Medicine; PCP Family Medicine; Visit Provider Emergency Medicine
DX: N13.6 Pyonephrosis (principal); F17.210 Nicotine dependence, cigarettes, uncomplicated; R00.1 Bradycardia, unspecified; R03.0 Elevated blood-pressure reading, without diagnosis of hypertension; N12 Tubulo-interstitial nephritis, not specified as acute or chronic
CPT/HCPCS: 74176; 80048; 81001; 85025; 87086; 96374; 96375; 99285; A4216; J0696

== ENCOUNTER 2024-11-02 20:51 | Emergency (ER) | payer MEDICAID, SELFPAY ==
[2024-11-02 20:51] VITALS: BP 140/75; PULSE 57; RESP 16; TEMP 36.7; O2SAT 98; BMI 23.8
--- NOTE | 2024-11-02 21:19 | RAD_ITS ---
PROCEDURE: CHEST PA AND LATERAL 11/02/2024 REASON FOR EXAM: COUGH TECHNIQUE: Frontal and lateral views of the chest. COMPARISON: None FINDINGS: Hardware: None Heart: The heart size is normal. Mediastinum: The mediastinal contour is unremarkable. Lungs: The lungs are clear. Bones: The bones are unremarkable. RAD/Chest PA and Lateral IMPRESSION: NO ACUTE FINDINGS. Reading Location: [facility]
--- NOTE | 2024-11-02 21:33 | EDS_ITS ---
HPI <ERICK Brown - Last Filed: 11/02/24 22:21> History of Present Illness Chief Complaint: Cold Sx Narrative Narrative: Patient is a 54-year-old male with no significant medical history who presents to the emergency department for 3 days of cough, night sweats, nausea, some diarrhea. Patient states that his significant other is also ill. Patient states that when he coughs it does hurt his chest. He denies any abdominal pain. PFSH <ERICK Brown - Last Filed: 11/02/24 22:21> [facility] Home Medications ?Medication ?Instructions ?Recorded ?Last Taken ?Type albuterol sulfate 90 mcg/actuation 2 puff inhalation Q 4H PRN PRN 09/27/19 Unknown Rx aerosol inhaler Wheezing ##1 albuterol sulfate 90 mcg/actuation 1 - 2 puff inhalati on Q4H PRN PRN 11/02/24 Unknown Rx aerosol inhaler (Ventolin HFA) Wheezing #8.5 grams ondansetron 4 mg disintegrating 4 mg PO Q8H PRN PRN Na usea #10 tabs 11/02/24 Unknown Rx tablet Allergy/AdvReac Type Severity Reaction Status Date / Time Penicillins Allergy Rash Verified 11/02/24 20:52 Social History (Updated 05/17/24 @ 02:[address] Waylon Bernal MD) household members: significant other Smoking Status: Current every day smoker tobacco type: cigarettes ROS <ERICK Brown - Last Filed: 11/02/24 22:21> ROS ED ROS Narrative Constitutional: Negative for weight loss, weakness. Positive for fever chills Eyes: Negative for vision loss, vision change, double vision ENT: Negative for any sore throat, ear pain, congestion Cardiovascular: Negative for any chest pain, tightness, palpitations Respiratory: Negative for any sputum production, hemoptysis, dyspnea, dyspnea on exertion, orthopnea. Positive for cough Gastrointestinal: Negative for any abdominal pain, vomiting constipation, blood in stool, blood in vomit. Positive for nausea, diarrhea : Negative for any urinary frequency, dysuria, retention, blood in urine Muscle skeletal: Negative for any neck pain, back pain Neurological: Negative for any headache, syncope, dizziness Skin: Negative for any rashes, itching, abrasions, lacerations Psychiatric: Negative for any depression, anxiety, stress, suicidal ideation, homicidal ideation Hematologic: Negative for any excessive bruising, easy bleeding EXAM <ERICK Brown - Last Filed: 11/02/24 22:21> Physical Exam Narrative Exam Narrative: Vital signs reviewed. HEET: Head normocephalic atraumatic, TMs clear bilaterally. Posterior pharynx is clear, moist mucous membranes. Nares clear bilaterally. Neck: Supple with no lymphadenopathy or tenderness. No signs of meningismus. Cardiac: Regular rate and rhythm no murmurs gallops or rubs, equal peripheral pulses bilaterally. Respiratory: Lungs clear to auscultation bilaterally. No chest tenderness. Abdomen: Soft, nontender, nondistended. No abdominal bruit or pulsatile masses. No hepatosplenomegaly Extremities: No peripheral edema, no signs of gross trauma or deformity. Active full range of motion of all extremities. Neuro: Cranial nerves II through XII intact, no focal neurological deficits. Skin: Clean dry and intact with no rash, purpura, petechiae, vesicles or pust ules. Backs/flank: No CVA tenderness, no midline spinal tenderness, no deformity. Psych: Normal mood and affect. No SI, HI or acute psychosis. Const Vital Signs: 11/02/24 20:51 11/02/24 21:41 Temperature 98.1 F Temperature Source Oral Pulse Rate 57 L Respiratory Rate 16 Respiratory Effort Normal Respiratory Pattern Normal Blood Pressure 140/75 H Blood Pressure Mean 96 Pulse Ox 98 Oxygen Delivery Method Room Air Positive well nourished and well developed General Appearance ED: well developed <Leo Kelley MD - Last Filed: 11/02/24 23:15> Physical Exam Const Vital Signs: 11/02/24 20:51 11/02/24 21:41 Temperature 98.1 F Temperature Source Oral Pulse Rate 57 L Respiratory Rate 16 Respiratory Effort Normal Respiratory Pattern Normal Blood Pressure 140/75 H Blood Pressure Mean 96 Pulse Ox 98 Oxygen Delivery Method Room Air MDM <ERICK Brown - Last Filed: 11/02/24 22:21> MDM Radiography Diagnostic Testing: Clinical Impression(s) from Imaging Studies Chest X-Ray 11/02/24 21:19 IMPRESSION: NO ACUTE FINDINGS. Reading Location: [facility] Treatment and Re-Evaluation :: Differential diagnosis includes however is not limited to: COVID-19, influenza, RSV, community-acquired pneumonia, COPD exacerbation, asthma Patient appears generally well, vital signs are stable, patient is nontoxic- appearing. Presenting to the emergency department complaints of cough, congestion, fever and chills, nausea and diarrhea. Patient did receive a chest x-ray, as well as a COVID-19 influenza RSV swab. Oral Zofran will be given. All radiologic examinations were read, reviewed by the emergency department attending. From these reads, a plan of care will be put in place. Patient x- ray was negative. Currently waiting for COVID-19 influenza RSV swab. <Leo Kelley MD - Last Filed: 11/02/24 23:15> [facility] MDM Narrative Medical decision making narrative: Dr. Kelley: I have personally performed a face to face assessment of the patient and have reviewed the RUSTY Note. I performed a substantive portion of the visit including all aspects of the following. My bailey findings include: History is upper respiratory infection type symptoms, fever, cough, nausea, vomiting, and diarrhea for 3 days. Sick contact and girlfriend. Exam is afebrile. Vital signs noted. Nontoxic-appearing. Cardiovascular examination reveals mild bradycardia. Lungs clear to auscultation bilaterally, no accessory muscle use. Abdomen is soft and nontender with positive bowel sounds. No guarding or rebound. Neurological examination nonfocal, nonlateralizing. Medical Decision Making: Concern is for viral syndrome with GI symptoms. Chest x-ray interpreted by myself independently shows no evidence of pneumonia or pneumothorax. I reviewed the radiology report which confirms my independent interpretation. I reviewed the respiratory swab which is positive for influenza A. I do feel that patient is outside the window/48-hour window for antivirals for influenza A. Treatment will be symptomatic. He was written prescriptions for an albuterol inhaler to use as well as Zofran. He declined a note for work. Return instructions to the emergency department were reviewed. Disposition is discharged home in stable condition. Other additions or changes: [None] History & Record Review Discussion w/independent historian: Patient Radiography Chest X-Ray - ED: Read by ED Physician, Read by Radiologist and No Acute Disease Diagnostic Testing: Clinical Impression(s) from Imaging Studies Chest X-Ray 11/02/24 21:19 IMPRESSION: NO ACUTE FINDINGS. Reading Location: [facility] Discharge Plan Triage Chief Complaint: Cold Sx ED Midlevel Provider: Kaleb Cummings ED Provider: Leo Kelley Dx/Rx/DC Orders Clinical Impression: Viral syndrome, Influenza A Instructions: ED Influenza (Adult), ED URI, Viral, No Abx (Adult) Prescriptions: New ondansetron 4 mg tablet,disintegrating 4 mg PO Q8H PRN PRN (Reason: Nausea) Qty: 10 0RF albuterol sulfate [Ventolin HFA] 90 mcg/actuation HFA aerosol inhaler 1 - 2 puff inhalation Q4H PRN PRN (Reason: Wheezing) Qty: 8.5 0RF No Action albuterol sulfate 1 INHALER inhaler 2 puff inhalation Q4H PRN PRN (Reason: Wheezing) Qty: 1 0RF Primary Care Provider: Kaleb Lora Referrals: Kaleb Lora MD [Primary Care Provider] - 1 Week if not improving Activity Restrictions/Additional Instructions: [id number] medications such as Tylenol or ibuprofen for fever and pain. Start with a clear liquid diet and advance to dry toast and crackers that advance as tolerated. Return with any increased difficulty breathing, new or worsening symptoms. Print Language: Luxembourgish Disposition Disposition: Home, Self Care
[2024-11-02] MEDS: Ondansetron ODT 4 MG Tablet PO (21:40)
[2024-11-02 23:26] VITALS: PULSE 74; RESP 16; O2SAT 100
== END 2024-11-02 23:27 | disposition home or self-care (01) ==
PROVIDERS: Emergency Provider Emergency Medicine; PCP Family Medicine; Visit Provider Emergency Medicine
DX: J10.1 Influenza due to other identified influenza virus with other respiratory manifestations (principal); B34.9 Viral infection, unspecified; F17.210 Nicotine dependence, cigarettes, uncomplicated; R11.0 Nausea
CPT/HCPCS: 71046; 87631; 99282